=== PATIENT | male | born 1990 | race Caucasian/White ===

== ENCOUNTER 2018-06-20 20:44 | Emergency (ER) | payer BC ==
[2018-06-20 21:38] LABS: HEMATOCRIT 42.6 % (42.0-52.0); HEMOGLOBIN 13.7 gm/dl (14.0-18.0); MEAN CELL VOLUME 80.1 fl (81-97); MEAN CORPUSCULAR HGB CONC 32.2 g/dl (32-36); MEAN PLATELET VOLUME 9.3 fl (7.4-10.4); PLATELET COUNT 401 K/uL (130-400); RED BLOOD COUNT 5.32 M/uL (4.40-5.70)
[2018-06-20 21:45] LABS: BLOOD UREA NITROGEN 15 mg/dL (6-20); CREATININE 0.9 mg/dL (0.7-1.2); EST GLOMERULAR FILTRATION RATE > 60 mL/min
[2018-06-20 21:46] LABS: MEAN CORPUSCULAR HEMOGLOBIN 25.7 pg (27-33)
[2018-06-20 21:48] LABS: GLUCOSE,RANDOM 109 mg/dL (74-109)
--- NOTE | 2018-06-20 21:53 | Emergency Department Record ---
History of Present Illness - General Chief Complaint: Dizziness Stated Complaint: DIZZY/ SLURRING SPEECH Time Seen by Provider: 06/20/18 21:04 Source: Patient Mode of Arrival: Ambulatory Limitations: No limitations - History of Present Illness Initial Comments: pt has been having episodes of dizziness for the last 2 wks and occasional difficulty finding words. pt stopped taking his lexapro 2 wks ago because his rx ran out. he restarted it a few days ago and thought he was feeling better but then after some heavy lifting and work today he felt dizzy again Complaint: Dizziness Onset/Timin -: Days(s) Timing: Gradual onset, Intermittent Description: Off-balance History of Trauma: No Severity: Mild Improves With: Remaining still Worsens With: Movement, Exertion - Willem Coma Scale Eye Response: (4) Open spontaneously Motor Response: (6) Obeys commands Verbal Response: (5) Oriented [place] Total: 15 - Symptoms of Stroke Symptoms of stroke: Dizziness, Slurred Speech, Unable to Think Clearly Baseline State: Baseline State - Related Data Allergies Allergy/AdvReac Type Severity Reaction Status Date / Time No Known Drug Allergies Allergy Verified 06/20/18 20:52 Travel Screening - Travel/Exposure Within Last 30 Days Have you traveled within the last 30 days?: No - Travel/Exposure Within Last Year Have you traveled outside the [place] in the last year?: No - Additonal Travel Details Have you been exposed to anyone with a communicable illness?: No - Travel Symptoms Symptom Screening: None Review of Systems Reviewed: No additional complaints except as noted below Constitutional: Reports: As per HPI. Denies: Chills, Fever, Malaise, Night sweats, Weakness, Weight change Eyes: Reports: As per HPI. Denies: Eye discharge, Eye pain, Photophobia, Vision change ENT: Reports: As per HPI. Denies: Congestion, Dental pain, Ear pain, Epistaxis , Hearing loss, Throat pain Respiratory: Reports: As per HPI. Denies: Cough, Dyspnea, Hemoptysis, Stridor, Wheezes Cardiovascular: Reports: As per HPI. Denies: Arrhythmia, Chest pain, Dyspnea on exertion, Edema, Murmurs, Orthopnea, Palpitations, Paroxysmal nocturnal dyspnea, Rheumatic Fever, Syncope Endocrine: Reports: As per HPI. Denies: Fatigue, Heat or cold intolerance, Polydipsia, Polyuria Gastrointestinal: Reports: As per HPI. Denies: Abdominal pain, Constipation, Diarrhea, Hematemesis, Hematochezia, Melena, Nausea, Vomiting Genitourinary: Reports: As per HPI. Denies: Dysuria, Frequency, Hematuria, Incontinence, Retention, Testicular pain, Testicular mass, Urgency Musculoskeletal: Reports: As per HPI. Denies: Arthralgia, Back pain, Gout, Joint swelling, Myalgia, Neck pain Skin: Reports: As per HPI. Denies: Bruising, Change in color, Change in hair/ nails, Lesions, Pruritus, Rash Neurological: Reports: As per HPI. Denies: Abnormal gait, Confusion, Headache, Numbness, Paresthesias, Seizure, Tingling, Tremors, Vertigo, Weakness Psychiatric: Reports: As per HPI. Denies: Anxiety, Auditory hallucinations, Depression, Homicidal thoughts, Suicidal thoughts, Visual hallucinations Hematological/Lymphatic: Reports: As per HPI. Denies: Anemia, Blood Clots, Easy bleeding, Easy bruising, Swollen glands Past Medical History - SOCIAL HISTORY Smoking Status: Never smoker Alcohol Use: Rare Drug Use: None - RESPIRATORY Hx Respiratory Disorders: Yes Hx Sleep Apnea: Yes Hx of CPAP: No - CARDIOVASCULAR Hx Cardio Disorders: No - NEURO Hx Neuro Disorders: No - GI Hx GI Disorders: Yes Hx Reflux: Yes - Hx Genitourinary Disorders: No - ENDOCRINE Hx Endocrine Disorders: No - MUSCULOSKELETAL Hx Musculoskeletal Disorders: No - PSYCH Hx Psych Problems: Yes Hx Depression: Yes - HEMATOLOGY/ONCOLOGY Hx Hematology/Oncology Disorders: No Family Medical History Any Significant Family History?: No Physical Exam - General General Appearance: Alert, Oriented x3, Cooperative, No acute distress - Head Head exam: Normal inspection - Eye Eye exam: Normal appearance, PERRL, EOMI Pupils: Normal accommodation - ENT ENT exam: Normal exam, Mucous membranes moist, Normal external ear exam, Normal orophraynx Ear exam: Normal external inspection. negative: External canal tenderness Nasal Exam: Normal inspection. negative: Discharge, Sinus tenderness Mouth exam: Normal external inspection, Tongue normal Teeth exam: Normal inspection. negative: Dental caries Throat exam: Normal inspection. negative: Tonsillar erythema, Tonsillar exudate - Neck Neck exam: Normal inspection, Full ROM. negative: Tenderness - Respiratory Respiratory exam: Normal lung sounds bilaterally. negative: Respiratory distress - Cardiovascular Cardiovascular Exam: Regular rate, Normal rhythm, Normal heart sounds - GI/Abdominal GI/Abdominal exam: Soft, Normal bowel sounds. negative: Tenderness - Rectal Rectal exam: Deferred - exam: Deferred - Extremities Extremities exam: Normal inspection, Full ROM, Normal capillary refill. negative: Tenderness - Back Back exam: Reports: Normal inspection, Full ROM. Denies: Muscle spasm, Rash noted, Tenderness - Neurological Neurological exam: Alert, CN II-XII intact, Normal gait, Oriented X3 - Psychiatric Psychiatric exam: Normal affect, Normal mood - Skin Skin exam: Dry, Intact, Normal color, Warm Course Vital Signs 06/20/18 20:51 Temperature 97.8 F Pulse Rate 66 Respiratory 20 Rate Blood Pressure 151/96 Pulse Ox 99 - Reevaluation(s) Reevaluation #1: 06/20/18 23:11 ct neg except for air fluid level. pt has no symptoms of sinusitis. Medical Decision Making - Lab Data Result diagrams: 06/20/18 21:03 06/20/18 21:03 Lab Results 06/20/18 06/20/18 Range/Units 21:03 21:03 WBC 14.0 H (4.2-12.2) K/uL RBC 5.32 (4.40-5.70) M/uL Hgb 13.7 L (14.0-18.0) gm/dl Hct 42.6 (42.0-52.0) % MCV 80.1 L (81-97) fl MCH 25.7 L (27-33) pg MCHC 32.2 (32-36) g/dl RDW 14.0 (11.5-14.5) % Plt Count 401 H (130-400) K/uL MPV 9.3 (7.4-10.4) fl Eosinophils % Not Reportable Basophils % Not Reportable Sodium 140 (136-145) mmol/L Potassium 3.5 (3.4-4.5) mmol/L Chloride 97 L (98-107) mmol/L Carbon Dioxide 30.0 H (22-29) mmol/L Anion Gap 13.0 (7-16) BUN 15 (6-20) mg/dL Creatinine 0.9 (0.7-1.2) mg/dL Estimated GFR > 60 mL/min Calcium 9.5 (8.6-10.0) mg/dL Disposition Disposition: Discharge Clinical Impression: Medication side effect Disposition: Home, Self-Care Condition: (1) Good Instructions: Adverse Drug Reaction (ED) Additional Instructions: take meds as directed. dont suddenly quit Forms: Patient Portal Access Quality - Quality Measures Quality Measures: N/A - Blood Pressure Screening Does Patient Have Any of the Following: No Blood Pressure Classification: Hypertensive Reading Systolic Measurement: 151 Diastolic Measurement: 96 Screening for High Blood Pressure: < First Hypertensive BP, F/U Documented > [ [id number]] First Hypertensive Follow-up Interventions: Follow-up with rescreen GT 1 day and LT 4 weeks.
[2018-06-20 22:15] LABS: ANISOCYTOSIS 1+; PLATELET ESTIMATE NORMAL (NORMAL)
--- NOTE | 2018-06-23 04:48 | CT SCAN REPORT ---
DATE: 06/20/2018 at 10:15 p.m. EXAM: HEAD CT WITHOUT CONTRAST. HISTORY: DIZZINESS. TECHNIQUE: Axial CT scan of the head performed without intravenous contrast. COMPARISON: None. FINDINGS: No definite acute intracranial hemorrhage identified. No focal mass effect or midline shift apparent. No definite acute infarct or intracranial mass lesion seen. Moderate membrane thickening in the right ethmoid, less so on the left. Air fluid level in the right maxillary sinus and probably a large cyst or polyp in the floor of the left maxillary sinus. IMPRESSION: 1. NO DEFINITE ACUTE INTRACRANIAL HEMORRHAGE OR FOCAL MASS EFFECT IDENTIFIED. 2. AIR FLUID LEVEL IN THE RIGHT MAXILLARY SINUS AND LARGE CYST OR POLYP IN THE FLOOR OF THE LEFT MAXILLARY SINUS. SOME MEMBRANE THICKENING, PARTICULARLY ANTERIORLY IN THE RIGHT ETHMOID SINUS WELL. JOB NUMBER: [id number] MTDD
== END 2018-06-20 23:31 | disposition home or self-care (01) ==
LOC: ER 20:44
DX: T43.226A Underdosing of selective serotonin reuptake inhibitors, initial encounter (principal); R42 Dizziness and giddiness; R47.81 Slurred speech
CPT/HCPCS: 70450; 80048; 85027; 93005; 93010; 99283; 99284

== ENCOUNTER 2019-02-16 11:10 | Observation (INO) | payer BC ==
[2019-02-16] MEDS ORDERED: ACETAMINOPHEN 500 MG TABLET PO PRN (11:22)
[2019-02-16] MEDS ORDERED: IBUPROFEN 600 MG TABLET PO PRN (11:23)
[2019-02-16] MEDS ORDERED: 0.9 % SODIUM CHLORIDE 1000ML 1,000 ML IV PRN (11:37)
[2019-02-16 12:38] LABS: ALB/GLOB RATIO 1.2 (1.1-1.8); ALBUMIN 4.2 g/dL (4.0-5.0); ALKALINE PHOSPHATASE 83 U/L (40-129); ALT/SGPT 58 U/L (<41); AST/SGOT 39 U/L (10.0-50.0); BLOOD UREA NITROGEN 11 mg/dL (6-20); CREATININE 0.9 mg/dL (0.7-1.2); EST GLOMERULAR FILTRATION RATE > 60 mL/min; GLUCOSE,RANDOM 100 mg/dL (74-109); TOTAL PROTEIN 7.6 g/dL (6.6-8.7)
[2019-02-16] MEDS: DOXYCYCLINE HYCLATE 100 MG CAPSULE PO SCH ×2 (13:34→21:28)
[2019-02-16] MEDS: GUAIFENESIN 1,200 MG TABLET PO SCH ×2 (13:34→21:28)
[2019-02-16] MEDS: CEFTRIAXONE 1GM/50ML BAG 1 GM/50 ML BAG IVPB SCH ×2 (13:34→21:28)
--- NOTE | 2019-02-16 17:31 | History & Physical ---
History of Present Illness - Date of Service Date of Service for History & Physical: 02/16/19 - History of Present Illness Admitting Diagnosis: Failed Outpatient Antibiotic Therapy History of Present Illness: Naresh Bah is a 28 y.o. M who was direct admitted from the [facility] d/t failed outpatient antibiotic treatment. He was diagnosed with Bronchitis after being seen on 02/12/19 and was started on Augmentin and given Tessalon perles and an albuterol inhaler. He presented to [facility] [place] today with c/o worsening cough, green sputum and SOB while at rest. A CXR was ordered which showed R lung nodular opacities and L lung base opacities. His SpO2 was 91% on RA. He was given a Duo-neb with no improvement. [facility] [place] provider discussed concern about possible PE. Comorbidities: Obesity and DMII PCP: Nisa Dupont [employer] 02/16/19 1147 Pt is sitting up in bed, in no acute distress. Mother is at bedside. Pt denies chest discomfort. States that he has had alot of "acid reflux" lately. Has been trying to stay hydrated. Reports that Tessalon perles haven't helped with cough. Pt denies any recent travel, no flying or long distance driving that would put him at risk for dvt/pe. Mother denies any family hx of bleed or blood clotting disorders. Travel Screening - Travel/Exposure Within Last 30 Days Have you traveled within the last 30 days?: No - Travel/Exposure Within Last Year Have you traveled outside the [place] in the last year?: No - Additonal Travel Details Have you been exposed to anyone with a communicable illness?: No - Travel Symptoms Symptom Screening: Fever (Subjective), Weakness, Lack of Appetite, Chills Review of Systems Reviewed: No additional complaints except as noted below Constitutional: Reports: Malaise, Weakness ENT: Reports: Congestion Respiratory: Reports: Cough, Dyspnea. Denies: Wheezes Cardiovascular: Reports: Dyspnea on exertion. Denies: Chest pain Endocrine: Reports: Fatigue Hematological/Lymphatic: Denies: Blood Clots Past Medical History - SOCIAL HISTORY Smoking Status: Never smoker - RESPIRATORY Hx Respiratory Disorders: Yes Hx Sleep Apnea: Yes Hx of CPAP: No - CARDIOVASCULAR Hx Cardio Disorders: No - NEURO Hx Neuro Disorders: No - GI Hx GI Disorders: Yes Hx Reflux: Yes - Hx Genitourinary Disorders: No - ENDOCRINE Hx Endocrine Disorders: No - MUSCULOSKELETAL Hx Musculoskeletal Disorders: No - PSYCH Hx Psych Problems: Yes Hx Depression: Yes - HEMATOLOGY/ONCOLOGY Hx Hematology/Oncology Disorders: No Family Medical History Any Significant Family History?: Yes Hx Cancer: Father Hx Heart Disease: Grandparents H&P Meds/Allergies - Allergies Allergies: Allergies Allergy/AdvReac Type Severity Reaction Status Date / Time No Known Drug Allergies Allergy Unverified 02/16/19 09:42 - Active Medications Active Medications: Current Medications Acetaminophen (Tylenol 500mg Tab) 1,000 mg PO Q6H PRN PRN Reason: PAIN - MILD(1-4)/FEVER Albuterol Sulfate (Albuterol Sulfate) 2.5 mg INH Q2H PRN PRN Reason: SHORTNESS OF BREATH Doxycycline Hyclate (Vibramycin) 100 mg PO BID [facility] Last Admin: 02/16/19 13:34 Dose: 100 mg Documented by: Escitalopram Oxalate (Lexapro) 20 mg PO DAILY [facility] Guaifenesin (Mucinex) 1,200 mg PO BID [facility] Last Admin: 02/16/19 13:34 Dose: 1,200 mg Documented by: CEFTRIAXONE 1GM/50ML BAG (Ceftriaxone 1 Gm-D5w Bag) 1 gm in 50 mls @ 100 mls/hr IVPB Q12HR [facility] Last Infusion: 02/16/19 14:45 Dose: Infused Documented by: Sodium Chloride () 1,000 mls @ 125 mls/hr IV .Q8H PRN PRN Reason: LARGE VOLUME IV Ibuprofen (Motrin 600mg) 600 mg PO Q6H PRN PRN Reason: PAIN - MODERATE (5-7) Metformin HCl (Glucophage Ir) 500 mg PO DAILYWM [facility] Physical Exam - Vital Signs Vital Signs: Vital Signs - Last 24 Hrs Temp Resp BP Pulse Ox 02/16/19 11:37 99.6 F 18 159/87 92 L - General General Appearance: Alert, Oriented x3, No acute distress, Other (appears a cutely ill) - Eye Eye exam: Normal appearance, PERRL - ENT ENT exam: Normal exam, Mucous membranes moist - Respiratory Respiratory exam: Decreased breath sounds, Rhonchi (ARABELLA). negative: Respiratory distress - Psychiatric Psychiatric exam: Normal affect, Normal mood - Skin Skin exam: Dry, Intact Results - Labs Result Diagrams: 02/16/19 21:15 08/19/19 12:10 Labs Last 24 Hours: Laboratory Results - last 24 hr 02/16/19 02/16/19 12:10 12:10 D-Dimer 1.34 H Sodium 140 Potassium 3.6 Chloride 96 L Carbon Dioxide 27.0 Anion Gap 17.0 H BUN 11 Creatinine 0.9 Estimated GFR > 60 Random Glucose 100 Calcium 9.1 Total Bilirubin 0.70 AST 39 ALT 58 H Alkaline Phosphatase 83 Total Protein 7.6 Albumin 4.2 Globulin 3.4 Albumin/Globulin Ratio 1.2 VTE H&P Assessment - Risk for VTE Risk for VTE: Yes Risk Level: Low Risk Assessment Date: 02/16/19 Risk Assessment Time: 11:45 VTE Orders Placed or Will Be Placed: No VTE Reason for No Prophylaxis: Not Indicated Plan - Detailed Diagnosis and Plan (1) Shortness of breath Current Visit: Yes Status: Acute Base Code: R06.02 - SHORTNESS OF BREATH Comment: 02/16/19 -Started approximately 02/10/19, was started on atbx on 02/12/19 and is worsening -CXR: Right lung nodular opacity and left lung base opacities -DDx: Pneumonitis vs. bacterial PNA -Stop Augmentin that was started on 02/12/19 -Start Doxycycline 100mg PO BID x 10 days -Start IV Rocephin 1gm q. 12 hours -Albuterol PRN -2L oxygen per NC PRN -Ddimer elevated to 1.34, Chest CTA ordered (2) Failure of outpatient treatment Current Visit: Yes Status: Acute Base Code: Z78.9 - OTHER SPECIFIED HEALTH STATUS Comment: 02/16/19 -Was started on Augmentin on 02/12/19 -Symptoms worsening -CXR indicates nodular opacity in right lung and opacity in left lung base (3) Full code status Current Visit: Yes Status: Acute Base Code: Z78.9 - OTHER SPECIFIED HEALTH STATUS Comment: 02/16/19 -Full code this admission (4) DVT prophylaxis Current Visit: Yes Status: Acute Base Code: Z29.9 - ENCOUNTER FOR PROPHYLACTIC MEASURES, UNSPECIFIED Comment: 02/16/19 -Low risk -Less than 24 hour OBV admission anticipated -Nursing to encourage ambulation
[2019-02-16] MEDS ORDERED: MELATONIN 5 MG TABLET PO PRN (19:54)
[2019-02-16] MEDS: ALBUTEROL SULFATE (0.083%) 2.5 MG/3 ML NEB INH PRN (20:53)
[2019-02-16 21:22] LABS: ABSOLUTE NEUTROPHIL COUNT 6.96; HEMATOCRIT 40.6 % (42.0-52.0); HEMOGLOBIN 12.9 gm/dl (14.0-18.0); MEAN CELL VOLUME 81.5 fl (81-97); MEAN CORPUSCULAR HEMOGLOBIN 25.9 pg (27-33); MEAN CORPUSCULAR HGB CONC 31.8 g/dl (32-36); MEAN PLATELET VOLUME 9.4 fl (7.4-10.4); PLATELET COUNT 325 K/uL (130-400); RED BLOOD COUNT 4.98 M/uL (4.40-5.70); RED CELL DISTRIBUTION WIDTH 14.4 % (11.5-14.5); WHITE BLOOD COUNT W/O DIFF 11.3 K/uL (4.2-12.2)
[2019-02-16 21:43] LABS: MICROCYTOSIS 1+; PLATELET ESTIMATE NORMAL (NORMAL); TOXIC GRANULATION 1+
[2019-02-16] MEDS: METHYLPREDNISOLONE PF 125MG/VIAL IVP SCH (23:40)
--- NOTE | 2019-02-17 07:52 | CT ANGIOGRAM REPORT ---
EXAM: CT ANGIOGRAM OF THE CHEST HISTORY: SHORTNESS OF BREATH. ELEVATED D-DIMER. TECHNIQUE: Routine CTA examination of the chest was performed utilizing a pulmonary embolus protocol with 88 ml of Omnipaque 350 utilized. Coronal and sagittal maximum intensity projection reformatted images are generated and reviewed. Comparison: Two view chest radiographic examination dated 02/16/19. FINDINGS: Opacification of the pulmonary arteries is satisfactory for interpretation though evaluation of the segmental arteries of the lower lungs is limited by respiratory motion. No convincing luminal filling defect is noted in the outflow tract, main arteries, lobar arteries, nor the proximal segmental arteries that are unaffected by respiratory motion to suggest acute pulmonary embolic disease. The heart is not enlarged. There is no evidence of right heart strain. The thoracic aorta is normal in caliber without evidence of dissection. Evaluation of the arch branch vessels is limited by artifact. There is mild adenopathy in the right hilum, subcarinal region and right paratracheal region. The enlarged right paratracheal lymph node at the level of the aortic arch measures 1.3 cm in short axis diameter. The subcarinal lymph node measures approximately 1.1 cm. The right hilar lymph node measures approximately 1.5 cm in short axis diameter. As demonstrated on same day radiographic examination, there are mixed ill defined nodular and alveolar opacities scattered throughout the right lung most pronounced within the right lower lobe and inferior aspect of the right upper lobe suspicious for bronchopneumonia. Similar though less pronounced changes are noted within the left lower lobe and inferior lingula. No pleural or pericardial effusion. The adrenal glands are incompletely imaged though to the extent visualized are normal in appearance. No lytic or blastic bone lesion. IMPRESSION: 1. EVALUATION OF THE SEGMENTAL ARTERIES, PARTICULARLY IN THE LOWER LOBES IS LIMITED BY MOTION ARTIFACT. NO CONVINCING CT EVIDENCE OF ACUTE PULMONARY EMBOLIC DISEASE. 2. MIXED NODULAR AND ALVEOLAR OPACITIES SCATTERED THROUGHOUT THE RIGHT LUNG AND TO A LESSER DEGREE WITHIN THE LEFT LUNG BASE SUSPICIOUS FOR BRONCHOPNEUMONIA. JOB NUMBER: [id number] MTDD
[2019-02-17] MEDS ORDERED: METFORMIN 500 MG TABLET PO SCH (08:00)
[2019-02-17] MEDS ORDERED: ESCITALOPRAM 10 MG TABLET PO SCH (10:00)
[2019-02-17] MEDS: CEFTRIAXONE 1GM/50ML BAG 1 GM/50 ML BAG IVPB SCH (10:49)
[2019-02-17] MEDS: METHYLPREDNISOLONE PF 125MG/VIAL IVP SCH (10:50)
[2019-02-17] MEDS: DOXYCYCLINE HYCLATE 100 MG CAPSULE PO SCH (10:54)
[2019-02-17] MEDS: GUAIFENESIN 1,200 MG TABLET PO SCH (10:54)
[2019-02-17] MEDS ORDERED: ENOXAPARIN 40 MG/0.4 ML SYR SQ SCH (13:15)
--- NOTE | 2019-02-17 17:29 | Discharge Note ---
VTE H&P Assessment - Risk for VTE Risk for VTE: Yes Risk Level: Low Risk Assessment Date: 02/16/19 Risk Assessment Time: 11:45 VTE Orders Placed or Will Be Placed: Yes Discharge Medications - Discharge Medications Prescriptions: Cefdinir [Omnicef] 300 mg PO BID #14 cap Doxycycline Hyclate [Vibramycin] 100 mg PO BID #20 capsule Home Medications: Ambulatory Orders Acetaminophen [Tylenol 500Mg Tab] 1,000 mg PO Q6H PRN tablet 02/17/19 [Last Taken Unknown] Cefdinir [Omnicef] 300 mg PO BID #14 cap 02/17/19 [Last Taken Unknown] Doxycycline Hyclate [Vibramycin] 100 mg PO BID #20 capsule 02/17/19 [Last Taken Unknown] Escitalopram Oxalate [Lexapro] 20 mg PO DAILY tab 02/17/19 [Last Taken Unknown] Metformin HCl [Glucophage Ir] 500 mg PO DAILYWM tablet 02/17/19 [Last Taken Unknown] Discharge Note - Date Date of Discharge Note: 02/17/19 Disposition: Home, Self-Care Condition: (1) Good Additional Instructions: Appointment with Nisa Dupont at [facility] 02/26 at 8:20AM stop augmentin start cefdinir 300 mg twice a day start [id number] mg twice a day drink fluids use inhaler albuterol(Ventolin) 2 puffs every 4 hours Referrals: Nisa Dupont, N.P. [Primary Care Provider] - Activity at Discharge: Increase Activity as Tolerated, Resume Usual Activities As Tolerated Diet at Discharge: Diabetic Diet
[2019-02-17] MEDS: ALBUTEROL SULFATE (0.083%) 2.5 MG/3 ML NEB INH PRN (17:42)
--- NOTE | 2019-02-18 14:51 | Discharge Summary ---
DATE: 02/17/2019 DISCHARGE DIAGNOSES: 1. Right middle and right lower lobe pneumonia, possibly left lower lobe pneumonia too. 2. Hypoxia, which has resolved. 3. Failed outpatient therapy for bronchitis with Augmentin. ATTENDING PHYSICIAN: Cristobal Rios DO REASON FOR HOSPITALIZATION: The patient is a 28-year-old male who was a direct admit from [facility] due to failed outpatient antibiotic treatment. He was diagnosed with bronchitis after being seen on 02/12/2019 and was started on medication and then given Tessalon Perles and albuterol inhaler. He presented to the [facility] on the day of admission with worsening cough, green sputum, and shortness of breath while at rest. Chest x- ray revealed right middle and right lower lobe pneumonia, left lung base pneumonia. His pulse ox was at 91% on room air; however, it was reported it was lower than that, like 89% to 88% at times by Nisa. He was given a DuoNeb treatment in the [facility]. No improvement. He was admitted to the hospital for pneumonia and concerns for a PE. The D-dimer was slightly elevated. The CTA of the chest was negative for PE but did show pneumonia. The patient was started on Rocephin 1 g q.12 h., doxycycline 100 mg b.i.d., and breathing treatments and given 2 doses of Solu-Medrol 60 mg. He was much better on the day of discharge. This is an observation patient. He was also given 1 shot of Lovenox to prevent DVTs. HOSPITAL COURSE: Improved. DISCHARGE INSTRUCTIONS: Follow up with Nisa Dupont on , 02/26/2019, at 8:20 a.m. Stop the Augmentin, start the cefdinir 300 mg twice a day for 7 days. Start the doxycycline 100 mg b.i.d. for 10 days. Drink fluids. Use the inhaler, which he already has, Ventolin albuterol 2 puffs every 4 hours. Exercise his diet and back to normal activity as tolerated. MTDD
== END 2019-02-17 18:20 | disposition home or self-care (01) ==
LOC: MEDSURG 11:10
PROVIDERS: ADMIT Internal Medicine; ATTEND Internal Medicine
DX: J18.9 Pneumonia, unspecified organism (principal); R05 Cough; Z16.30 Resistance to unspecified antimicrobial drugs; R06.02 Shortness of breath; R53.1 Weakness; E11.9 Type 2 diabetes mellitus without complications; G47.33 Obstructive sleep apnea (adult) (pediatric); R53.81 Other malaise; E66.9 Obesity, unspecified
CPT/HCPCS: 71046; 71275; 80053; 85027; 85379; 94640; 94761; 99217; 99220; J0696; J1650; J2930; J7613